=== PATIENT | male | born 1960 | race African-American/Black ===

== ENCOUNTER 2016-11-14 00:40 | Inpatient (IN) | payer SELFPAY ==
[2016-11-14] VITALS (15 sets, daily range): BP systolic 109–153; BP diastolic 75–112
[~2016-11-14] VITALS: Ht 168.9 cm; Wt 104.4 kg
[2016-11-14 01:39] LABS: BASO # 0.1 x10^3/uL (0.0-0.2); BASO % 1 % (0-3); EOS % 1 % (0-3); HEMATOCRIT 49.2 % (39.0-53.0); HEMOGLOBIN 16.3 g/dL (13.0-17.5); LYMPH # 3.6 x10^3/uL (1.0-4.8); LYMPH % 35 % (24-48); MEAN CORPUSCULAR HEMOGLOBIN 31 pg (25-35); MEAN CORPUSCULAR HGB CONC 33 g/dL (31-37); MEAN CORPUSCULAR VOLUME 93 fL (79-100); MONO % 7 % (0-9); NEUT % 57 % (31-73); PLATELET COUNT 253 x10^3/uL (140-400); RED BLOOD COUNT 5.27 x10^6/uL (4.30-5.70); WHITE BLOOD COUNT 10.2 x10^3/uL (4.0-11.0)
[2016-11-14 02:01] LABS: CALCIUM 8.8 mg/dL (8.5-10.1); CREATININE 1.3 mg/dL (0.7-1.3); GFR 56.9; POTASSIUM 4.2 mmol/L (3.5-5.1)
[2016-11-14 02:09] LABS: ALBUMIN 3.1 g/dL (3.4-5.0); ALBUMIN/GLOBULIN RATIO 0.7 (1.0-1.7); TOTAL BILIRUBIN 0.7 mg/dL (0.2-1.0); TOTAL PROTEIN 7.3 g/dL (6.4-8.2)
--- NOTE | 2016-11-14 02:36 | PHYS DOC ---
Past Medical History Past Medical History: Diabetes-Type II Past Surgical History: Other Additional Past Surgical Histo: toe Alcohol Use: Rarely Drug Use: None Adult General Chief Complaint Chief Complaint: CHEST PAIN HPI HPI Patient is a 56 year old gentleman who presents here today complaining of chest pain. Patient has midsternal chest pressure while he is resting. Patient denies any shortness of breath nausea vomiting radiating pain. Patient reports he was diaphoretic. Patient reports she took one sublingual nitroglycerin Rocephin is currently pain-free. Patient reports he works out every day. Patient reports he does approximately 150 crunches per day. Patient has no history of hypertension liver longer kidney problems. Patient does have a history of diabetes. Patient reports he had a history of a coronary stent in the past. Patient does not smoke drink or do any drugs. Patient reports she is allergic to insulin. Patient's EKG was consistent with normal sinus rhythm without ectopy 110. Patient has nonspecific ST-T wave abnormalities without any evidence of STEMI. Chest x-ray revealed no acute disease. Normal heart no infiltrates or effusions. Interpreted by Dr. Morfin. Patient's troponin level was 1.707. Constitutional: Denies fever or chills [] Eyes: Denies change in visual acuity, redness, or eye pain [] HENT: Denies nasal congestion or sore throat [] All other review systems are negative except as documented in the history of present illness portion. Constitutional: Well developed, well nourished, no acute distress, non-toxic appearance. [] HENT: Normocephalic, atraumatic, bilateral external ears normal, oropharynx moist, no oral exudates, nose normal. [] Eyes: no discharge. [] Neck: Normal range of motion, no tenderness, supple, no stridor. [] Cardiovascular:Heart rate regular rhythm, Lungs & Thorax: Bilateral breath sounds clear to auscultation [] Abdomen: Bowel sounds normal, soft, no tenderness, no masses, no pulsatile masses. [] Skin: Warm, dry, no erythema, no rash. [] Back: No tenderness, no CVA tenderness. [] Extremities: No tenderness, no cyanosis, no clubbing, ROM intact, no edema. [] Neurologic: Alert and oriented X 3, normal motor function, normal sensory function, no focal deficits noted. [] Psychologic: Affect normal, judgement normal, mood normal. [] Assessment and plan This is a 56-year-old gentleman who presents here today with chest pain was found to have an elevated troponin of 1.707. CO2 for further evaluation of his elevated troponin. Patient was started on heparin drip. Patient's currently pain -free. Patient's repeat EKG did not reveal any change in his nonspecific ST-T waves Remainder the patient's labs were within normal limits. Patient be admitted for cardiology evaluation. Patient is clinically and hemodynamically stable. Critical care time was 35 minutes exclusive of procedures. Laboratory Tests Test 11/14/16 00:53 11/14/16 02:00 White Blood Count 10.2 x10^3/uL Red Blood Count 5.27 x10^6/uL Hemoglobin 16.3 g/dL Hematocrit 49.2 % Mean Corpuscular Volume 93 fL Mean Corpuscular Hemoglobin 31 pg Mean Corpuscular Hemoglobin Concent 33 g/dL Red Cell Distribution Width 14.0 % Platelet Count 253 x10^3/uL Neutrophils (%) (Auto) 57 % Lymphocytes (%) (Auto) 35 % Monocytes (%) (Auto) 7 % Eosinophils (%) (Auto) 1 % Basophils (%) (Auto) 1 % Neutrophils # (Auto) 5.8 x10^3uL Lymphocytes # (Auto) 3.6 x10^3/uL Monocytes # (Auto) 0.7 x10^3/uL Eosinophils # (Auto) 0.1 x10^3/uL Basophils # (Auto) 0.1 x10^3/uL Sodium Level 138 mmol/L Potassium Level 4.2 mmol/L Chloride Level 101 mmol/L Carbon Dioxide Level 26 mmol/L Anion Gap 11 Blood Urea Nitrogen 18 mg/dL Creatinine 1.3 mg/dL Estimated GFR (Cockcroft-Gault) 56.9 BUN/Creatinine Ratio 14 Glucose Level 401 mg/dL Calcium Level 8.8 mg/dL Total Bilirubin 0.7 mg/dL Aspartate Amino Transf (AST/SGOT) 44 U/L Alanine Aminotransferase (ALT/SGPT) 47 U/L Alkaline Phosphatase 78 U/L Troponin I Quantitative 1.707 ng/mL ZT-[id number]-[id number]-Type Natriuretic Peptide 2969 pg/mL Total Protein 7.3 g/dL Albumin 3.1 g/dL Albumin/Globulin Ratio 0.7 Prothrombin Time 13.3 SEC Prothromb Time International Ratio 1.1 Activated Partial Thromboplast Time 32 SEC Magnesium Level 1.6 mg/dL Triglycerides Level 119 mg/dL Cholesterol Level 206 mg/dL LDL Cholesterol, Calculated 139 mg/dL VLDL Cholesterol, Calculated 24 mg/dL Non-HDL Cholesterol Calculated 163 mg/dL HDL Cholesterol 43 mg/dL Cholesterol/HDL Ratio 4.8 Thyroid Stimulating Hormone (TSH) 3.738 uIU/mL Allergies Allergies Allergies Coded Allergies Type Severity Reaction Last Updated Verified Insulins Allergy Intermediate 11/14/16 Yes glimepiride Allergy Intermediate 11/14/16 Yes metformin Allergy Intermediate 11/14/16 Yes Current Patient Data Vital Signs Vital Signs Date Time Temp Pulse Resp B/P (MAP) Pulse Ox O2 Delivery O2 Flow Rate FiO2 11/14/16 00:46 97.6 53 16 156/91 (112) 97 Room Air 97.6 Lab Values Laboratory Tests Test 11/14/16 00:53 11/14/16 02:00 White Blood Count 10.2 x10^3/uL (4.0-11.0) Red Blood Count 5.27 x10^6/uL (4.30-5.70) Hemoglobin 16.3 g/dL (13.0-17.5) Hematocrit 49.2 % (39.0-53.0) Mean Corpuscular Volume 93 fL (79-100) Mean Corpuscular Hemoglobin 31 pg (25-35) Mean Corpuscular Hemoglobin Concent 33 g/dL (31-37) Red Cell Distribution Width 14.0 % (11.5-14.5) Platelet Count 253 x10^3/uL (140-400) Neutrophils (%) (Auto) 57 % (31-73) Lymphocytes (%) (Auto) 35 % (24-48) Monocytes (%) (Auto) 7 % (0-9) Eosinophils (%) (Auto) 1 % (0-3) Basophils (%) (Auto) 1 % (0-3) Neutrophils # (Auto) 5.8 x10^3uL (1.8-7.7) Lymphocytes # (Auto) 3.6 x10^3/uL (1.0-4.8) Monocytes # (Auto) 0.7 x10^3/uL (0.0-1.1) Eosinophils # (Auto) 0.1 x10^3/uL (0.0-0.7) Basophils # (Auto) 0.1 x10^3/uL (0.0-0.2) Sodium Level 138 mmol/L (136-145) Potassium Level 4.2 mmol/L (3.5-5.1) Chloride Level 101 mmol/L (98-107) Carbon Dioxide Level 26 mmol/L (21-32) Anion Gap 11 (6-14) Blood Urea Nitrogen 18 mg/dL (8-26) Creatinine 1.3 mg/dL (0.7-1.3) Estimated GFR (Cockcroft-Gault) 56.9 BUN/Creatinine Ratio 14 (6-20) Glucose Level 401 mg/dL (70-99) H Calcium Level 8.8 mg/dL (8.5-10.1) Total Bilirubin 0.7 mg/dL (0.2-1.0) Aspartate Amino Transferase (AST) 44 U/L (15-37) H Alanine Aminotransferase (ALT) 47 U/L (16-63) Alkaline Phosphatase 78 U/L (46-116) Troponin I Quantitative 1.707 ng/mL (0.000-0.055) PH-Kub-X-Type Natriuretic Peptide 2969 pg/mL (0-124) H Total Protein 7.3 g/dL (6.4-8.2) Albumin 3.1 g/dL (3.4-5.0) L Albumin/Globulin Ratio 0.7 (1.0-1.7) L Prothrombin Time 13.3 SEC (11.7-14.0) Prothrombin Time INR 1.1 (0.8-1.1) PTT 32 SEC (24-38) Magnesium Level 1.6 mg/dL (1.8-2.4) L Triglycerides Level 119 mg/dL (0-150) Cholesterol Level 206 mg/dL (0-200) H LDL Cholesterol, Calculated 139 mg/dL (0-100) H VLDL Cholesterol, Calculated 24 mg/dL (0-40) Non-HDL Cholesterol Calculated 163 mg/dL (0-129) H HDL Cholesterol 43 mg/dL (40-60) Cholesterol/HDL Ratio 4.8 Thyroid Stimulating Hormone (TSH) 3.738 uIU/mL (0.358-3.74) Laboratory Tests 11/14/16 00:53 Laboratory Tests 11/14/16 00:53 EKG EKG [] Radiology/Procedures Radiology/Procedures [] Course & Med Decision Making Course & Med Decision Making Pertinent Labs and Imaging studies reviewed. (See chart for details) [] Dragon Disclaimer Dragon Disclaimer This electronic medical record was generated, in whole or in part, using a voice recognition dictation system. Departure Departure Impression: Primary Impression: Unstable angina Additional Impressions: Non-STEMI (non-ST elevated myocardial infarction) Elevated troponin Disposition: ADMITTED INPATIENT Admitting Physician: Other Condition: GUARDED (reusch) Referrals: NO PCP (PCP) Scripts Metoprolol Tartrate (METOPROLOL TARTRATE) 25 Mg Tablet 12.5 MG PO BID for 30 Days, #30 TAB Prov: PRETTY WALLER MD 11/16/16 Metformin Hcl (GLUCOPHAGE) 1,000 Mg Tablet 1000 MG PO BIDWMEALS for 30 Days, #6 TAB Prov: PRETTY WALLER MD 11/16/16 Clopidogrel Bisulfate (CLOPIDOGREL) 75 Mg Tablet 75 MG PO DAILYWBKFT for 30 Days, #30 TAB Prov: PRETTY WALLER MD 11/16/16 Aspirin (ASPIRIN EC) 81 Mg Tablet.dr 81 MG PO DAILYWBKFT for 30 Days, #30 TAB.SR Prov: PRETTY WALLER MD 11/16/16 Problem Qualifiers ANUM DORAN MD Nov 14, 2016 02:36
[2016-11-14] MEDS ORDERED: NITROGLYCERIN SUBLINGUAL 0.4 MG BOTTLE OF 25. SL PRN (02:45)
[2016-11-14] MEDS ORDERED: MORPHINE SULFATE 2 MG/ML DISP.SYRIN. IV PRN (02:45)
[2016-11-14] MEDS ORDERED: ACETAMINOPHEN 325 MG TABLET. PO PRN (02:45)
[2016-11-14] MEDS ORDERED: ONDANSETRON PF 4 MG/2 ML VIAL. IV PRN (02:45)
[2016-11-14] MEDS ORDERED: ASPIRIN CHEWABLE 81 MG TABLET. PO ONE (03:00)
[2016-11-14] MEDS ORDERED: NITROGLYCERIN OINT 1 GM PACKET. TP ONE (03:00)
[2016-11-14] MEDS: HEPARIN for IV BOLUS 10,000 UNIT/10 ML VIAL. IV PRN (03:50)
[2016-11-14] MEDS: HEPARIN 25,000UTS/500ML PREMIX 500 ML IV PRN (03:51)
[2016-11-14 04:13] LABS: INR 1.1 (0.8-1.1); PROTHROMBIN TIME PATIENT 13.3 SEC (11.7-14.0)
[2016-11-14] MEDS: ANTI-COAG MONITOR BY PHARMACY. MC PRN ×2 (04:37→09:48)
--- NOTE | 2016-11-14 07:19 | PDOC2 ---
ABEL RIDLEY IC [employer] 11/14/16 0719: CARDIAC CONSULT DATE OF CONSULT Date of Consult DATE: 11/14/16 TIME: 07:15 REASON FOR CONSULT Reason for Consult: NSTEMI REFERRING PHYSICIAN Referring Physician: Brock SOURCE Source: Chart review, Patient HISTORY OF PRESENT ILLNESS HISTORY OF PRESENT ILLNESS This is a pleasant 56 yo male admitted for complains of midsternal fullness. Reports that last night after eating he started having fullness "gas like feeling" like indigestion. There was no chest pain, nausea, palpitations, dizziness, or diaphoresis. His activity is minimal but he has been having episode where he has to stop during conversation to catch his breath. Reports that he had PCI/stent at [facility] 2014. He is rather a poor historian and is not compliant with his medications. He takes daily ASA otherwise no other routine prescription medications. PAST MEDICAL HISTORY Cardiovascular: CAD, HTN, Hyperlipidemia ENT: Other (periodontal disease) Endocrine: Diabetes (2) PAST SURGICAL HISTORY Past Surgical History: Other (PCI/stent 2014) FAMILY HISTORY Family History: Coronary Artery Disease (mother) SOCIAL HISTORY Smoke: No (quit remotely 3 pk yr) ALCOHOL: occassional Drugs: None Lives: with Family CURRENT MEDICATIONS CURRENT MEDICATIONS Current Medications Medications (Trade) Dose Ordered Sig/Jewell Route PRN Reason Start Time Stop Time Status Last Admin Dose Admin Aspirin (Children'S Aspirin) 324 mg 1X ONCE PO 11/14/16 03:00 11/14/16 03:01 DC 11/14/16 02:46 Nitroglycerin (Nitro-Bid Oint) 1 inch 1X ONCE TP 11/14/16 03:00 11/14/16 03:01 DC 11/14/16 02:49 Heparin Sodium/ Dextrose 500 ml @ 0 mls/hr CONT PRN IV SEE I/O RECORD 11/14/16 03:15 11/14/16 03:51 Heparin Sodium (Porcine) (Heparin Sodium) 2,600 unit PRN Q6HRS PRN IV FOR UFH LEVEL LESS THAN 0.2 11/14/16 03:15 11/14/16 03:50 Info (Anti-Coagulation Monitoring By Pharmacy) 1 each PRN DAILY PRN MC SEE COMMENTS 11/14/16 03:30 11/14/16 04:37 ALLERGIES ALLERGIES: Coded Allergies: Insulins (Verified Allergy, Intermediate, 11/14/16) blurry vision glimepiride (Verified Allergy, Intermediate, 11/14/16) shortness of breath metformin (Verified Allergy, Intermediate, 11/14/16) blurry vision ROS Review of System limited, poor historian PHYSICAL EXAM General: Alert, Oriented X3, Cooperative, No acute distress HEENT: Atraumatic, Mucous membr. moist/pink Lungs: Other (basilra crackles) Heart: Regular rate (SR), Normal S1, Normal S2, Other (S4; 3/6 systolic murmur to LLS border) Abdomen: Soft, No tenderness Extremities: No cyanosis, Other (2+ bilateral LE pitting edema) Skin: No breakdown, No significant lesion Neuro: Normal speech, Sensation intact Psych/Mental Status: Mental status NL, Mood NL MUSCULOSKELETAL: Osteoarthritic changes both hands VITALS VITALS Vital Signs Date Time Temp Pulse Resp B/P (MAP) Pulse Ox O2 Delivery O2 Flow Rate FiO2 11/14/16 05:32 Room Air 11/14/16 03:45 97.5 105 20 149/112 (124) 96 97.5 LABS Lab: Laboratory Tests Test 11/14/16 00:53 11/14/16 02:00 White Blood Count 10.2 x10^3/uL (4.0-11.0) Red Blood Count 5.27 x10^6/uL (4.30-5.70) Hemoglobin 16.3 g/dL (13.0-17.5) Hematocrit 49.2 % (39.0-53.0) Mean Corpuscular Volume 93 fL (79-100) Mean Corpuscular Hemoglobin 31 pg (25-35) Mean Corpuscular Hemoglobin Concent 33 g/dL (31-37) Red Cell Distribution Width 14.0 % (11.5-14.5) Platelet Count 253 x10^3/uL (140-400) Neutrophils (%) (Auto) 57 % (31-73) Lymphocytes (%) (Auto) 35 % (24-48) Monocytes (%) (Auto) 7 % (0-9) Eosinophils (%) (Auto) 1 % (0-3) Basophils (%) (Auto) 1 % (0-3) Neutrophils # (Auto) 5.8 x10^3uL (1.8-7.7) Lymphocytes # (Auto) 3.6 x10^3/uL (1.0-4.8) Monocytes # (Auto) 0.7 x10^3/uL (0.0-1.1) Eosinophils # (Auto) 0.1 x10^3/uL (0.0-0.7) Basophils # (Auto) 0.1 x10^3/uL (0.0-0.2) Sodium Level 138 mmol/L (136-145) Potassium Level 4.2 mmol/L (3.5-5.1) Chloride Level 101 mmol/L (98-107) Carbon Dioxide Level 26 mmol/L (21-32) Anion Gap 11 (6-14) Blood Urea Nitrogen 18 mg/dL (8-26) Creatinine 1.3 mg/dL (0.7-1.3) Estimated GFR (Cockcroft-Gault) 56.9 BUN/Creatinine Ratio 14 (6-20) Glucose Level 401 mg/dL (70-99) Calcium Level 8.8 mg/dL (8.5-10.1) Total Bilirubin 0.7 mg/dL (0.2-1.0) Aspartate Amino Transf (AST/SGOT) 44 U/L (15-37) Alanine Aminotransferase (ALT/SGPT) 47 U/L (16-63) Alkaline Phosphatase 78 U/L (46-116) Troponin I Quantitative 1.707 ng/mL (0.000-0.055) PU-Plt-Q-Type Natriuretic Peptide 2969 pg/mL (0-124) Total Protein 7.3 g/dL (6.4-8.2) Albumin 3.1 g/dL (3.4-5.0) Albumin/Globulin Ratio 0.7 (1.0-1.7) Prothrombin Time 13.3 SEC (11.7-14.0) Prothromb Time International Ratio 1.1 (0.8-1.1) Activated Partial Thromboplast Time 32 SEC (24-38) ASSESSMENT/PLAN ASSESSMENT/PLAN 1. NSTEMI 2. Acute CHF with possible combined diastolic/systolic dysfunction 3. DM2/HLP/HTN 4. CAD: PCI/stent 2014 5. Noncompliance Recommendations 1. TTE, EKG. Will need LHC 2. Continue heparin drip. ASA 3. Lasix IV x1. Labetolol IV PRN. Start on losartan. 4. TSH, BMP, Mg, lipid panel. Problems: RADHA MAYFIELD MD 11/14/16 1244: CARDIAC CONSULT ALLERGIES ALLERGIES: Coded Allergies: Insulins (Verified Allergy, Intermediate, 11/14/16) blurry vision glimepiride (Verified Allergy, Intermediate, 11/14/16) shortness of breath metformin (Verified Allergy, Intermediate, 11/14/16) blurry vision ASSESSMENT/PLAN ASSESSMENT/PLAN Pt. seen and examined. Agree with above EMS HELICOPTER PILOT note. 56 y.o critically ill male presenting for chest pain. NSTEMI with trop of 71 in the setting of prior LAD stent. Taken to lab animal technologist. Found to have two vessel CAD. Moderate Poor prognosis. Underwent angioplasty of the RCA. No stent placed due to small size of vessels. Problems: ABEL RIDLEY APRN Nov 14, 2016 07:19 RADHA MAYFIELD MD Nov 14, 2016 12:44
[2016-11-14] MEDS ORDERED: LABETALOL 20 MG/4 ML DISP.SYRIN. IVP PRN (07:30)
--- NOTE | 2016-11-14 07:36 | EKG ---
[facility] [address] [place] [address] Test Date: 2016-11-13 Test Time: 21:02:22 Pat Name: KEATON ALANIZ Department: Room: 202 1 Gender: M Recruiter: : 1960 Requested By: ANUM DORAN Order Number: [id number] Reading MD: Elliott Hylton Measurements Intervals [place] Rate: 94 P: 2 TX: 138 QRS: 77 QRSD: 88 T: -14 QT: 350 QTc: 438 Interpretive Statements SINUS RHYTHM QRS(T) CONTOUR ABNORMALITY CANNOT RULE OUT ANTEROSEPTAL MYOCARDIAL DAMAGE T ABNORMALITY IN INFEROLATERAL LEADS Electronically Signed On 11-22-2016 14:54:27 CDT by Elliott Hylton
--- NOTE | 2016-11-14 07:38 | EKG ---
[facility] [address] [place] [address] Test Date: 2016-11-14 Test Time: 00:47:18 Pat Name: KEATON ALANIZ Department: Room: 202 1 Gender: M Sausage Tier: : 1960 Requested By: ABEL RIDLEY Order Number: [id number] Reading MD: Ignacio To Measurements Intervals [place] Rate: 102 P: [place]: QRS: 14 QRSD: 96 T: 93 QT: 320 QTc: 421 Interpretive Statements SR PVC PRIOR ANTEROLATERAL INFARCT Electronically Signed On 11-19-2016 14:35:26 CDT by Ignacio To
[2016-11-14] MEDS ORDERED: FUROSEMIDE 40 MG/4 ML VIAL. IVP ONE (07:45)
[2016-11-14 07:56] LABS: MAGNESIUM 1.6 mg/dL (1.8-2.4)
[2016-11-14 07:58] LABS: CHOLESTEROL/HDL RATIO 4.8
[2016-11-14] MEDS: LOSARTAN POTASSIUM 50 MG TABLET. PO SCH (08:04)
[2016-11-14] MEDS: ASPIRIN ENTERIC COATED 81 MG TABLET.DR. PO SCH (08:04)
--- NOTE | 2016-11-14 08:13 | RAD ---
Indication chest pain. A single view chest was obtained. No prior imaging is available. Heart size and pulmonary vessels are within normal limits. There is a suspect small right pleural effusion. A consolidated pneumonia is not seen. IMPRESSION: Suspect small right pleural effusion. No consolidated pneumonia or additional finding seen
--- NOTE | 2016-11-14 09:50 | PDOC1 ---
History and Physical Date of Admission Date of Admission Date of exam 11/14/2016 Chief complaint: Chest pressure History of Present Illness History of Present Illness A 56-year-old male patient with history of coronary artery disease and coronary stents placed in 2014 at [facility], with component of noncompliance presented to the ER with complaints of chest pressure/ indigestion. Patient noted symptoms as today evening as indigestion, with some sweating, denies any nausea or vomiting or chest pain or syncope. As patient was working out he noticed more more indigestion-like symptoms. He is noncompliant with his medications due to unknown reasons also patient is diabetic. Patient had a elevation of troponins with EKG changes. His symptoms resolved at the time of my examination this morning, he received aspirin in the ER. Past Medical History Cardiovascular: CAD, HTN, Hyperlipidemia ENT: Other (periodontal disease) Endocrine: Diabetes (2) Past Surgical History Past Surgical History: Other (PCI/stent 2014) Family History Family History: Coronary Artery Disease (mother) Social History Smoke: No (quit remotely 3 pk yr) ALCOHOL: occassional Drugs: None Current Problem List Problem List Problems Medical Problems: (1) Elevated troponin Status: Acute (2) Non-STEMI (non-ST elevated myocardial infarction) Status: Acute (3) Unstable angina Status: Acute Current Medications Current Medications Current Medications Medications (Trade) Dose Ordered Sig/Jewell Start Time Stop Time Status Last Admin Dose Admin Acetaminophen (Tylenol) 650 mg PRN Q4HRS PRN 11/14/16 02:45 11/15/16 02:44 Aspirin (Children'S Aspirin) 324 mg 1X ONCE 11/14/16 03:00 11/14/16 03:01 DC 11/14/16 02:46 243 MG Aspirin (Ecotrin) 81 mg [id number] 11/14/16 08:00 11/14/16 08:04 81 MG Furosemide (Lasix) 40 mg 1X ONCE 11/14/16 07:45 11/14/16 07:46 DC 11/14/16 08:04 40 MG Heparin Sodium (Porcine) (Heparin Sodium) 2,600 unit PRN Q6HRS PRN 11/14/16 03:15 11/14/16 03:50 2,600 UNIT Heparin Sodium/ Dextrose 500 ml @ 0 mls/hr CONT PRN 11/14/16 03:15 11/14/16 03:51 20 MLS/HR Info (Anti-Coagulation Monitoring By Pharmacy) 1 each PRN DAILY PRN 11/14/16 03:30 11/14/16 04:37 1 EACH Labetalol HCl (Normodyne) 20 mg PRN Q2HR PRN 11/14/16 07:30 Losartan Potassium (Cozaar) 50 mg DAILY 11/14/16 09:00 Morphine Sulfate 2 mg PRN Q2HR PRN 11/14/16 02:45 11/15/16 02:44 Nitroglycerin (Nitro-Bid Oint) 1 inch 1X ONCE 11/14/16 03:00 11/14/16 03:01 DC 11/14/16 02:49 1 INCH Nitroglycerin (Nitrostat) 0.4 mg PRN Q5MIN PRN 11/14/16 02:45 11/15/16 02:44 Ondansetron HCl (Zofran) 4 mg PRN Q8HRS PRN 11/14/16 02:45 11/15/16 02:44 Allergies Allergies Allergies Coded Allergies Type Severity Reaction Last Updated Verified Insulins Allergy Intermediate 11/14/16 Yes glimepiride Allergy Intermediate 11/14/16 Yes metformin Allergy Intermediate 11/14/16 Yes ROS Review of System CONSTITUTIONAL: No fever or chills EYES: No recent changes SKIN: No rash or itching CARDIOVASCULAR: No chest pain, syncope, palpitations, or edema RESPIRATORY: No SOB or cough GASTROINTESTINAL: No nausea, vomiting or abdominal pain NEUROLOGICAL: No headaches or weakness ENDOCRINE: No cold or heat intolerance GENITOURINARY: No urgency or frequency of urination MUSCULOSKELETAL: No back pain or joint pain LYMPHATICS: No enlarged lymph nodes PSYCHIATRIC: No anxiety or depression Physical Exam Physical Exam GEN.: No apparent distress. Alert and oriented. Examined after angiogram, alert oriented 3 no distress HEENT: Head is normocephalic, atraumatic NECK: Supple. No JVD LUNGS: Clear to auscultation. Normal air flow HEART: RRR, S1, S2 present. Peripheral pulses intact ABDOMEN: Soft, nontender. Positive bowel sounds. EXTREMITIES: Without any cyanosis. NEUROLOGIC: Normal speech, normal tone PSYCHIATRIC: Normal affect, normal mood. SKIN: No ulcerations Vitals Vitals Vital Signs Date Time Temp Pulse Resp B/P (MAP) Pulse Ox O2 Delivery O2 Flow Rate FiO2 11/14/16 08:04 90 129/87 11/14/16 07:00 97.6 20 97 Room Air 97.6 Labs Labs Laboratory Tests Test 11/14/16 00:53 11/14/16 02:00 11/14/16 07:15 11/14/16 08:04 White Blood Count 10.2 x10^3/uL (4.0-11.0) Red Blood Count 5.27 x10^6/uL (4.30-5.70) Hemoglobin 16.3 g/dL (13.0-17.5) Hematocrit 49.2 % (39.0-53.0) Mean Corpuscular Volume 93 fL (79-100) Mean Corpuscular Hemoglobin 31 pg (25-35) Mean Corpuscular Hemoglobin Concent 33 g/dL (31-37) Red Cell Distribution Width 14.0 % (11.5-14.5) Platelet Count 253 x10^3/uL (140-400) Neutrophils (%) (Auto) 57 % (31-73) Lymphocytes (%) (Auto) 35 % (24-48) Monocytes (%) (Auto) 7 % (0-9) Eosinophils (%) (Auto) 1 % (0-3) Basophils (%) (Auto) 1 % (0-3) Neutrophils # (Auto) 5.8 x10^3uL (1.8-7.7) Lymphocytes # (Auto) 3.6 x10^3/uL (1.0-4.8) Monocytes # (Auto) 0.7 x10^3/uL (0.0-1.1) Eosinophils # (Auto) 0.1 x10^3/uL (0.0-0.7) Basophils # (Auto) 0.1 x10^3/uL (0.0-0.2) Sodium Level 138 mmol/L (136-145) Potassium Level 4.2 mmol/L (3.5-5.1) Chloride Level 101 mmol/L (98-107) Carbon Dioxide Level 26 mmol/L (21-32) Anion Gap 11 (6-14) Blood Urea Nitrogen 18 mg/dL (8-26) Creatinine 1.3 mg/dL (0.7-1.3) Estimated GFR (Cockcroft-Gault) 56.9 BUN/Creatinine Ratio 14 (6-20) Glucose Level 401 mg/dL (70-99) Calcium Level 8.8 mg/dL (8.5-10.1) Total Bilirubin 0.7 mg/dL (0.2-1.0) Aspartate Amino Transf (AST/SGOT) 44 U/L (15-37) Alanine Aminotransferase (ALT/SGPT) 47 U/L (16-63) Alkaline Phosphatase 78 U/L (46-116) Troponin I Quantitative 1.707 ng/mL (0.000-0.055) 71.849 ng/mL (0.000-0.055) KM-Byx-Y-Type Natriuretic Peptide 2969 pg/mL (0-124) Total Protein 7.3 g/dL (6.4-8.2) Albumin 3.1 g/dL (3.4-5.0) Albumin/Globulin Ratio 0.7 (1.0-1.7) Prothrombin Time 13.3 SEC (11.7-14.0) Prothromb Time International Ratio 1.1 (0.8-1.1) Activated Partial Thromboplast Time 32 SEC (24-38) Magnesium Level 1.6 mg/dL (1.8-2.4) Triglycerides Level 119 mg/dL (0-150) Cholesterol Level 206 mg/dL (0-200) LDL Cholesterol, Calculated 139 mg/dL (0-100) VLDL Cholesterol, Calculated 24 mg/dL (0-40) Non-HDL Cholesterol Calculated 163 mg/dL (0-129) HDL Cholesterol 43 mg/dL (40-60) Cholesterol/HDL Ratio 4.8 Thyroid Stimulating Hormone (TSH) 3.738 uIU/mL (0.358-3.74) Glucose (Fingerstick) 307 mg/dL (70-99) Laboratory Tests Test 11/14/16 00:53 11/14/16 02:00 11/14/16 07:15 11/14/16 08:04 White Blood Count 10.2 x10^3/uL (4.0-11.0) Red Blood Count 5.27 x10^6/uL (4.30-5.70) Hemoglobin 16.3 g/dL (13.0-17.5) Hematocrit 49.2 % (39.0-53.0) Mean Corpuscular Volume 93 fL (79-100) Mean Corpuscular Hemoglobin 31 pg (25-35) Mean Corpuscular Hemoglobin Concent 33 g/dL (31-37) Red Cell Distribution Width 14.0 % (11.5-14.5) Platelet Count 253 x10^3/uL (140-400) Neutrophils (%) (Auto) 57 % (31-73) Lymphocytes (%) (Auto) 35 % (24-48) Monocytes (%) (Auto) 7 % (0-9) Eosinophils (%) (Auto) 1 % (0-3) Basophils (%) (Auto) 1 % (0-3) Neutrophils # (Auto) 5.8 x10^3uL (1.8-7.7) Lymphocytes # (Auto) 3.6 x10^3/uL (1.0-4.8) Monocytes # (Auto) 0.7 x10^3/uL (0.0-1.1) Eosinophils # (Auto) 0.1 x10^3/uL (0.0-0.7) Basophils # (Auto) 0.1 x10^3/uL (0.0-0.2) Sodium Level 138 mmol/L (136-145) Potassium Level 4.2 mmol/L (3.5-5.1) Chloride Level 101 mmol/L (98-107) Carbon Dioxide Level 26 mmol/L (21-32) Anion Gap 11 (6-14) Blood Urea Nitrogen 18 mg/dL (8-26) Creatinine 1.3 mg/dL (0.7-1.3) Estimated GFR (Cockcroft-Gault) 56.9 BUN/Creatinine Ratio 14 (6-20) Glucose Level 401 mg/dL (70-99) Calcium Level 8.8 mg/dL (8.5-10.1) Total Bilirubin 0.7 mg/dL (0.2-1.0) Aspartate Amino Transf (AST/SGOT) 44 U/L (15-37) Alanine Aminotransferase (ALT/SGPT) 47 U/L (16-63) Alkaline Phosphatase 78 U/L (46-116) Troponin I Quantitative 1.707 ng/mL (0.000-0.055) 71.849 ng/mL (0.000-0.055) LJ-Jkb-X-Type Natriuretic Peptide 2969 pg/mL (0-124) Total Protein 7.3 g/dL (6.4-8.2) Albumin 3.1 g/dL (3.4-5.0) Albumin/Globulin Ratio 0.7 (1.0-1.7) Prothrombin Time 13.3 SEC (11.7-14.0) Prothromb Time International Ratio 1.1 (0.8-1.1) Activated Partial Thromboplast Time 32 SEC (24-38) Magnesium Level 1.6 mg/dL (1.8-2.4) Triglycerides Level 119 mg/dL (0-150) Cholesterol Level 206 mg/dL (0-200) LDL Cholesterol, Calculated 139 mg/dL (0-100) VLDL Cholesterol, Calculated 24 mg/dL (0-40) Non-HDL Cholesterol Calculated 163 mg/dL (0-129) HDL Cholesterol 43 mg/dL (40-60) Cholesterol/HDL Ratio 4.8 Thyroid Stimulating Hormone (TSH) 3.738 uIU/mL (0.358-3.74) Glucose (Fingerstick) 307 mg/dL (70-99) VTE Prophylaxis Ordered VTE Prophylaxis Devices: Yes VTE Pharmacological Prophylaxi: Yes Assessment/Plan Assessment/Plan NSTEMI Hyperglycemia Hypertension History of coronary artery disease Hyperlipidemia Plan His labs reviewed, showed elevation of troponins, has been placed on heparin GTT as per ACS protocol. Case discussed with cardiology, they're planning for angiogram today, patient had a history of noncompliance with medications, Order HbA1c Monitor blood sugars closely, try sliding scale insulin with NovoLog Lipitor for hyperlipidemia EKG personally reviewed-showed T-wave inversions in anterior leads. Appreciate cardiology recommendations, prognosis guarded Family members at bedside plan explained to family members agree with current management RAMONA ANTUNEZ MD Nov 14, 2016 09:50
[2016-11-14] MEDS ORDERED: LIDOCAINE 2% 20 ML VIAL. ONE (09:57)
[2016-11-14] MEDS ORDERED: IODIXANOL 320 MG/ML 100 ML VIAL. ONE (09:58)
[2016-11-14] MEDS ORDERED: fentaNYL PF VIAL 250 MCG/5 ML VIAL ONE (10:37)
[2016-11-14] MEDS ORDERED: NITROGLYCERIN 200 MCG/2 ML SYRINGE FOR CATH/VASC LAB. ONE (10:37)
[2016-11-14] MEDS ORDERED: HEPARIN for IV BOLUS 10,000 UNIT/10 ML VIAL. ONE (10:37)
[2016-11-14] MEDS ORDERED: VERAPAMIL 5 MG/2 ML VIAL. ONE (10:37)
[2016-11-14] MEDS ORDERED: MIDAZOLAM HCL/PF 5 MG/5 ML VIAL. ONE (10:38)
[2016-11-14] MEDS ORDERED: NITROGLYCERIN 200 MCG/2 ML SYRINGE FOR CATH/VASC LAB. IART ONE (11:00)
[2016-11-14] MEDS ORDERED: VERAPAMIL 5 MG/2 ML VIAL. IART ONE (11:00)
[2016-11-14] MEDS ORDERED: MIDAZOLAM HCL/PF 5 MG/5 ML VIAL. IV ONE (11:00)
[2016-11-14] MEDS ORDERED: LIDOCAINE 2% 20 ML VIAL. IJ ONE (11:00)
[2016-11-14] MEDS ORDERED: IODIXANOL 320 MG/ML 100 ML VIAL. IART ONE (11:00)
[2016-11-14] MEDS ORDERED: fentaNYL PF VIAL 250 MCG/5 ML VIAL IV ONE (11:00)
[2016-11-14] MEDS ORDERED: CONTRAST GIVEN MC PRN (11:00)
[2016-11-14] MEDS ORDERED: HEPARIN for IV BOLUS 10,000 UNIT/10 ML VIAL. IART ONE (11:00)
[2016-11-14] MEDS ORDERED: TIROFIBAN 12.5MG -0.9% NS 250 ML IV ONE (11:14)
[2016-11-14] MEDS: IV 1/2 NORMAL SALINE 1,000 ML IV SCH (11:26)
[2016-11-14] MEDS ORDERED: TIROFIBAN 12.5MG -0.9% NS 250 ML IV PRN (12:00)
[2016-11-14] MEDS ORDERED: CLOPIDOGREL BISULFATE 75 MG TABLET PO ONE (12:15)
[2016-11-14] MEDS ORDERED: CLOPIDOGREL BISULFATE 75 MG TABLET ONE (12:17)
--- NOTE | 2016-11-14 15:55 | CARD ---
APPROVED REPORT Procedure(s) performed: Left Heart Catheterization PTCA with Balloon Angioplasty 109 minutes of moderate sedation HISTORY The patient is a 56 year-old male with a history of : coronary artery disease, tobacco history() , pr evious PCI (The PCI date was ), hypertension, dyslipidemia. INDICATION The indication(s) include : non-STEMI Trop of 71. CASE TECHNIQUE During this case, Fluoroscopy and Iso-osmolar contrast were used for imaging. PROCEDURE NARRATIVE The patient was brought electively to the cardiac catheterization lab. A timeout was performed confi rming the patient's name, date of , procedure, and site of procedure. All necessary personnel w ere wearing the appropriate protective equipment and radiation monitor devices. After explaining the risks and benefits of the procedure and alternatives, informed consent was obtained. (See nursing no maryanne for medications administered). The right wrist was sterilely prepped and draped in the usual fas hion. The right wrist was infiltrated with 1 mL of 2% lidocaine for subcutaneous anesthesia. A 6 Fr ench Terumo glide sheath was inserted into the right radial artery without difficulty. Right and lef t coronary angiography was performed using a 6Fr TIG 4.0 catheter. HEMODYNAMICS: LVEDP 22 mm Hg No gradient on LV to aortic pullback. LEFT VENTRICULOGRAM: Severe global hypokinesis with akinesis of the anterior wall. CORONARY ANGIOGRAPHY: LM is a large caliber vessel with mild luminal irregularities of up to 20%. LAD is a large caliber vessel with a proximal 100% occlusion at the site of previously placed stents. Collaterals to the apical LAD were not well visualized, likely due to PDA occlusion, which presumabl y was providing collaterals to the apex. LCx is a moderate caliber non-dominant vessel with normal angiographic appearance. OM1 is a moderate caliber vessel with normal angiographic appearance. RCA is a large caliber dominant vessel with mild diffuse irregularities of up to 30%. RPDA is a dual system. The distal limb is ostially occluded at the origin of the RPL. The proximal br anch is patent without significant disease. RPL is ostially occluded. INTERVENTIONAL TECHNIQUE: Initial attempts to pass a pigtail catheter in the LV were unsucessful via the radial approach despit e the use of an AL1 catheter and straight wire. Therefore, right groin access was obtained and a 6Fr sheath was placed in the RCFA. Next, repeat attempts were made to cross the aortic valve and prior to which a limited echo was suggestive of at least moderate aortic stenosis. A pigtail catheter was ton rikki and noted to have a 25mm gradient (likely underestimated due to low EF). Heparin and tirofiban were used for anticoagulation. Due to staining in ostial rpl/pda system, this w as felt to be the culprit lesion. Through a 6Fr JR4 guide catheter, a 0.014' Prowater wire was placed in the distal RPL. PTCA was performed with a 2.0/12 balloon at 10 hamzah. Post-angioplasty it was noted the second (distal) limb of the PDA was ostially occluded. A second (Terumo runthrough) wire was use d to cross the proximal aspect of the lesion. Repeat PTCA was performed but due to small vessel natur e, acute angles and or thrombus burden, significant improvement of flow to the RPDA was not obtained. The RPL was well perfused. Attention was then turned to the LAD stenosis. Through an EBU 3.75 guide catheter, a 0.014'' Prowater wire as used to probe the proximal stent occlusion but this was felt to be chronic and therefore, fu rther attempts were discontinued and the patient was treated with medical therapy. Given 600mg of ton vix and heparin/tirofiban gtts continued. The right groin sheath was noted to be in the ostial SFA an d therefore, this was closed with a Mynx marleni product and the right radial sheath was removed with a T erumo radial band. Conclusion 1. Severe LV dysfunction with suspicion for moderate . 2. Two vessel CAD. 3. Unsuccessful recanalization of the RPDA 4. Successful recanalization of the RPL. Recommendations ASA 81mg daily Plavix 75mg daily I had a long discussion with the patient and his regarding the gravity of his diagnosis/findings . They have poor insight into the matter at this time but will reiterate need for close medical mgmt and follow up. Needs social work consult for insurance.
[2016-11-15] MEDS: HEPARIN for IV BOLUS 10,000 UNIT/10 ML VIAL. IV PRN ×2 (02:23→17:27)
--- NOTE | 2016-11-15 03:10 | ACF ---
Admission Forms Criteria MYOCARDIAL INFARCTION Clinical Indications for Admission to Inpatient Care (Place 'X' for any and all applicable criteria): Admission is indicated for 1 or more of the following (1)(2)(3)(4): [ X]I. Acute MS [ ]II. Contraindications and/or Inappropriate clinical situations for Observational Care in patients with Myocardial Infarction, when ANY ONE of the following is required: [ ]a) Patient with High risk of cardiac embolism (e.g, patients with previous cardiac embolism, LVEF < 40%, age >75 and patients with prosthetic valve) 18 [ ]b) Patient with Moderate risk including DM patient, CAD and patient aged 65-75 18 [ ]c) Patient with any change in cardiac biomarker especially troponin should be managed as high risk in an inpatient setting 19 [ ]d) Physician judgement irrespective of ECG and other diagnostic findings 20 [ ]III.General contraindications and/or Inappropriate clinical situations for Observational Care in patients with Myocardial Infarction, when ANY ONE of the following is required: [ ]a) Prediction of prolongation of LOS based on ANY ONE of the following may be considered as a contraindication for observational care 2, 3, 4, 5, 6, 7, 8, 9, 10, 11 [ ]i) Age > 65 yrs. [ ]ii) Patient arriving by ambulance [ ]iii) Patient with high acuity [ ]iv) Patient requiring vital sign monitoring [ ]v) Patient on IV medication [ ]b) Systolic blood pressures greater than or equal to 180mmHg 3,12 [ ]c) Patient with altered mental status including delirium and other alteration of consciousness, (3) [ ]d) Patient whose discharge disposition will be to a [facility] home or rehabilitation home should not be managed in Emergency Department Observation Unit. CMS rule requires 3 days hospital stay before such placement. 3,13 [ ]e) Patient with failure to thrive due to broad array of etiologies 3 ,16,17 [ ]f) Inability to ambulate 3,14 Extended stay beyond goal length of stay may be needed for (1)(18)(20)(24)(25): [ ]a) Hemodynamic instability, persisting symptoms after intensive medical management, or recurring severe, prolonged symptoms [ ]b) Intravascular procedural complications such as acute vessel closure, stent thrombosis, stent malposition, or vessel dissection (26)(27)(28) [ ]c) Extravascular procedural complications such as retroperitoneal hematoma , pericardial effusion, or cardiac tamponade [ ]d) Entry site complications causing bleeding, hematoma or distal ischemia and requiring ongoing monitoring, surgical repair or surgical thrombectomy. Dangerous arrhythmia [ ]e) Complicated percutaneous coronary intervention (e.g., unsuccessful percutaneous coronary intervention or percutaneous coronary intervention of non- [place] vessel) [ ]f) Urgent or emergent surgery for complications of MS (e.g., ventricular rupture, valvular insufficiency) [ ]g) Surgical revascularization via coronary artery bypass graft [ ]h) Heart failure (e.g., pulmonary edema) [ ]i) Unstable pulmonary comorbidities, including COPD or pneumonia (31) [ ]j) Acute renal failure The original [employer] content created by [employer] has been revised. The portions of the content which have been revised are identified through the use of italic text or in bold, and [employer] has neither reviewed nor approved the modified material. All other unmodified content is copyright [facility] [employer] Please see references footnoted in the original [facility] [employer] edition 2016 Admission Criteria Met?: Yes ELANA HARKINS Nov 15, 2016 03:10
[2016-11-15 03:50] VITALS: BP 111/78
[2016-11-15] MEDS: HEPARIN 25,000UTS/500ML PREMIX 500 ML IV PRN ×2 (06:01→20:57)
[2016-11-15 07:40] VITALS: BP 116/85
[2016-11-15] MEDS: IV 1/2 NORMAL SALINE 1,000 ML IV SCH (07:45)
[2016-11-15] MEDS: LOSARTAN POTASSIUM 50 MG TABLET. PO SCH (08:38)
[2016-11-15] MEDS: ASPIRIN ENTERIC COATED 81 MG TABLET.DR. PO SCH (08:38)
[2016-11-15] MEDS: CLOPIDOGREL BISULFATE 75 MG TABLET PO SCH (08:38)
[2016-11-15 09:25] LABS: HEMOGLOBIN 15.1 g/dL (13.0-17.5); RED BLOOD COUNT 4.87 x10^6/uL (4.30-5.70); RED CELL DISTRIBUTION WIDTH 13.8 % (11.5-14.5)
--- NOTE | 2016-11-15 10:25 | PDOC ---
Provider Note Provider Note No acute events overnight. Denies chest pain. VSS exam unchanged. R groin stable. Meds - heparin, asa, plavix. Trop pending, peaked so far at 90. Plan -Continue present meds. -add HF regimen tomorrow to include b-yarely. Continue losartan. -Supportive care. -Poor insight still. Repeatedly explained issues including CAD, HF, and probable moderate aortic stenosis to patient and . Will continue to educate. RADHA MAYFIELD MD Nov 15, 2016 10:25
[2016-11-15 11:00] VITALS: BP 125/89
--- NOTE | 2016-11-15 12:47 | PDOC ---
PROGRESS NOTES Chief Complaint Chief Complaint Chief complaint chest pain Assessment and plan 1. Severe LV dysfunction with suspicion for moderate . 2. Two vessel CAD. 3. Unsuccessful recanalization of the RPDA 4. Successful recanalization of the RPL. 5. Diabetes mellitus uncontrolled Plan Case discussed with cardiology, patient prognosis is guarded. 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 Continue aspirin, losartan, Plavix at this time. Patient would like to have a $4 list medications at the time of discharge History of Present Illness History of Present Illness Sitting in chair, no fever no chills no chest pains Vitals Vitals Vital Signs Date Time Temp Pulse Resp B/P (MAP) Pulse Ox O2 Delivery O2 Flow Rate FiO2 11/15/16 11:00 97.9 74 24 125/89 (101) 100 Room Air 97.9 11/15/16 08:00 2.0 Physical Exam General: Alert, Oriented X3, Cooperative, No acute distress Heart: Regular rate (SR), Normal S1, Normal S2, Other (S4; 3/6 systolic murmur to LLS border) Lungs: Clear Abdomen: Soft, No tenderness Extremities: No cyanosis, Other (2+ bilateral LE pitting edema) Skin: No breakdown, No significant lesion Labs LABS Laboratory Tests Test 11/14/16 14:40 11/15/16 00:30 11/15/16 08:00 Heparin Anti-Xa Act, Unfractionated 0.36 IU/mL (0.30-0.70) 0.11 IU/mL (0.30-0.70) 0.42 IU/mL (0.30-0.70) Troponin I Quantitative 93.655 ng/mL (0.000-0.055) 31.775 ng/mL (0.000-0.055) White Blood Count 9.0 x10^3/uL (4.0-11.0) Red Blood Count 4.87 x10^6/uL (4.30-5.70) Hemoglobin 15.1 g/dL (13.0-17.5) Hematocrit 45.0 % (39.0-53.0) Mean Corpuscular Volume 92 fL (79-100) Mean Corpuscular Hemoglobin 31 pg (25-35) Mean Corpuscular Hemoglobin Concent 34 g/dL (31-37) Red Cell Distribution Width 13.8 % (11.5-14.5) Platelet Count 189 x10^3/uL (140-400) Assessment and Plan Assessmemt and Plan Problems Medical Problems: (1) Elevated troponin Status: Acute (2) Non-STEMI (non-ST elevated myocardial infarction) Status: Acute (3) Unstable angina Status: Acute Problems: Comment Review of Relevant I have reviewed the following items ami (where applicable) has been applied. Labs Laboratory Tests Test 11/14/16 00:53 11/14/16 02:00 11/14/16 07:15 11/14/16 08:04 White Blood Count 10.2 x10^3/uL (4.0-11.0) Red Blood Count 5.27 x10^6/uL (4.30-5.70) Hemoglobin 16.3 g/dL (13.0-17.5) Hematocrit 49.2 % (39.0-53.0) Mean Corpuscular Volume 93 fL (79-100) Mean Corpuscular Hemoglobin 31 pg (25-35) Mean Corpuscular Hemoglobin Concent 33 g/dL (31-37) Red Cell Distribution Width 14.0 % (11.5-14.5) Platelet Count 253 x10^3/uL (140-400) Neutrophils (%) (Auto) 57 % (31-73) Lymphocytes (%) (Auto) 35 % (24-48) Monocytes (%) (Auto) 7 % (0-9) Eosinophils (%) (Auto) 1 % (0-3) Basophils (%) (Auto) 1 % (0-3) Neutrophils # (Auto) 5.8 x10^3uL (1.8-7.7) Lymphocytes # (Auto) 3.6 x10^3/uL (1.0-4.8) Monocytes # (Auto) 0.7 x10^3/uL (0.0-1.1) Eosinophils # (Auto) 0.1 x10^3/uL (0.0-0.7) Basophils # (Auto) 0.1 x10^3/uL (0.0-0.2) Sodium Level 138 mmol/L (136-145) Potassium Level 4.2 mmol/L (3.5-5.1) Chloride Level 101 mmol/L (98-107) Carbon Dioxide Level 26 mmol/L (21-32) Anion Gap 11 (6-14) Blood Urea Nitrogen 18 mg/dL (8-26) Creatinine 1.3 mg/dL (0.7-1.3) Estimated GFR (Cockcroft-Gault) 56.9 BUN/Creatinine Ratio 14 (6-20) Glucose Level 401 mg/dL (70-99) Calcium Level 8.8 mg/dL (8.5-10.1) Total Bilirubin 0.7 mg/dL (0.2-1.0) Aspartate Amino Transf (AST/SGOT) 44 U/L (15-37) Alanine Aminotransferase (ALT/SGPT) 47 U/L (16-63) Alkaline Phosphatase 78 U/L (46-116) Troponin I Quantitative 1.707 ng/mL (0.000-0.055) 71.849 ng/mL (0.000-0.055) IU-Gqt-B-Type Natriuretic Peptide 2969 pg/mL (0-124) Total Protein 7.3 g/dL (6.4-8.2) Albumin 3.1 g/dL (3.4-5.0) Albumin/Globulin Ratio 0.7 (1.0-1.7) Prothrombin Time 13.3 SEC (11.7-14.0) Prothromb Time International Ratio 1.1 (0.8-1.1) Activated Partial Thromboplast Time 32 SEC (24-38) Magnesium Level 1.6 mg/dL (1.8-2.4) Triglycerides Level 119 mg/dL (0-150) Cholesterol Level 206 mg/dL (0-200) LDL Cholesterol, Calculated 139 mg/dL (0-100) VLDL Cholesterol, Calculated 24 mg/dL (0-40) Non-HDL Cholesterol Calculated 163 mg/dL (0-129) HDL Cholesterol 43 mg/dL (40-60) Cholesterol/HDL Ratio 4.8 Thyroid Stimulating Hormone (TSH) 3.738 uIU/mL (0.358-3.74) Glucose (Fingerstick) 307 mg/dL (70-99) Test 11/14/16 14:40 11/15/16 00:30 11/15/16 08:00 Heparin Anti-Xa Act, Unfractionated 0.36 IU/mL (0.30-0.70) 0.11 IU/mL (0.30-0.70) 0.42 IU/mL (0.30-0.70) Troponin I Quantitative 93.655 ng/mL (0.000-0.055) 31.775 ng/mL (0.000-0.055) White Blood Count 9.0 x10^3/uL (4.0-11.0) Red Blood Count 4.87 x10^6/uL (4.30-5.70) Hemoglobin 15.1 g/dL (13.0-17.5) Hematocrit 45.0 % (39.0-53.0) Mean Corpuscular Volume 92 fL (79-100) Mean Corpuscular Hemoglobin 31 pg (25-35) Mean Corpuscular Hemoglobin Concent 34 g/dL (31-37) Red Cell Distribution Width 13.8 % (11.5-14.5) Platelet Count 189 x10^3/uL (140-400) Laboratory Tests Test 11/14/16 14:40 11/15/16 00:30 11/15/16 08:00 Heparin Anti-Xa Act, Unfractionated 0.36 IU/mL (0.30-0.70) 0.11 IU/mL (0.30-0.70) 0.42 IU/mL (0.30-0.70) Troponin I Quantitative 93.655 ng/mL (0.000-0.055) 31.775 ng/mL (0.000-0.055) White Blood Count 9.0 x10^3/uL (4.0-11.0) Red Blood Count 4.87 x10^6/uL (4.30-5.70) Hemoglobin 15.1 g/dL (13.0-17.5) Hematocrit 45.0 % (39.0-53.0) Mean Corpuscular Volume 92 fL (79-100) Mean Corpuscular Hemoglobin 31 pg (25-35) Mean Corpuscular Hemoglobin Concent 34 g/dL (31-37) Red Cell Distribution Width 13.8 % (11.5-14.5) Platelet Count 189 x10^3/uL (140-400) Medications Current Medications Ondansetron HCl (Zofran) 4 mg PRN Q8HRS PRN IV NAUSEA/VOMITING; Start 11/14/16 at 02:45; Stop 11/15/16 at 02:44; Status DC Morphine Sulfate 2 mg PRN Q2HR PRN IV SEVERE PAIN; Start 11/14/16 at 02:45; Stop 11/15/16 at 02:44; Status DC Acetaminophen (Tylenol) 650 mg PRN Q4HRS PRN PO FEVER; Start 11/14/16 at 02:45 ; Stop 11/15/16 at 02:44; Status DC Nitroglycerin (Nitrostat) 0.4 mg PRN Q5MIN PRN SL CHEST PAIN; Start 11/14/16 at 02:45; Stop 11/15/16 at 02:44; Status DC Aspirin (Children'S Aspirin) 324 mg 1X ONCE PO Last administered on 11/14/16 02:46; Start 11/14/16 at 03:00; Stop 11/14/16 at 03:01; Status DC Nitroglycerin (Nitro-Bid Oint) 1 inch 1X ONCE TP Last administered on 02:49; Start 11/14/16 at 03:00; Stop 11/14/16 at 03:01; Status DC Heparin Sodium/ Dextrose 500 ml @ 0 mls/hr CONT PRN IV SEE I/O RECORD Last administered on 11/15/16 06:01; Start 11/14/16 at 03:15 Heparin Sodium (Porcine) (Heparin Sodium) 2,600 unit PRN Q6HRS PRN IV FOR UFH LEVEL LESS THAN 0.2 Last administered on 11/15/16 02:23; Start 11/14/16 at 03: 15 Info (Anti-Coagulation Monitoring By Pharmacy) 1 each PRN DAILY PRN MC SEE COMMENTS Last administered on 11/14/16 09:48; Start 11/14/16 at 03:30 Labetalol HCl (Normodyne) 20 mg PRN Q2HR PRN IVP HYPERTENSION, SEE COMMENTS Last administered on 11/14/16 17:03; Start 11/14/16 at 07:30 Aspirin (Ecotrin) 81 mg DAILYWBKFT PO Last administered on 11/15/16 08:38; Start 11/14/16 at 08:00 Furosemide (Lasix) 40 mg 1X ONCE IVP Last administered on 11/14/16 08:04; Start 11/14/16 at 07:45; Stop 11/14/16 at 07:46; Status DC Losartan Potassium (Cozaar) 50 mg DAILY PO Last administered on 11/15/16 08:38 ; Start 11/14/16 at 09:00 Heparin Sodium/ Sodium Chloride 1,000 ml @ As Directed STK-MED ONCE .ROUTE ; Start 11/14/16 at 09:57; Stop 11/14/16 at 09:58; Status DC Lidocaine HCl 20 ml STK-MED ONCE .ROUTE ; Start 11/14/16 at 09:57; Stop at 09:58; Status DC Iodixanol (Visipaque 320) 100 ml STK-MED ONCE .ROUTE ; Start 11/14/16 at 09:58; Stop 11/14/16 at 09:59; Status DC Nitroglycerin (Nitroglycerin) 200 mcg STK-MED ONCE .ROUTE ; Start 11/14/16 at 10 :37; Stop 11/14/16 at 10:38; Status DC Verapamil HCl (Verapamil) 5 mg STK-MED ONCE .ROUTE ; Start 11/14/16 at 10:37; Stop 11/14/16 at 10:38; Status DC Heparin Sodium (Porcine) (Heparin Sodium) 10,000 unit STK-MED ONCE .ROUTE ; Start 11/14/16 at 10:37; Stop 11/14/16 at 10:38; Status DC Fentanyl Citrate (Fentanyl 5ml Vial) 250 mcg STK-MED ONCE .ROUTE ; Start at 10:37; Stop 11/14/16 at 10:38; Status DC Midazolam HCl (Versed) 5 mg STK-MED ONCE .ROUTE ; Start 11/14/16 at 10:38; Stop 11/14/16 at 10:39; Status DC Nitroglycerin (Nitroglycerin) 200 mcg 1X ONCE IART Last administered on 12:22; Start 11/14/16 at 11:00; Stop 11/14/16 at 11:01; Status DC Verapamil HCl (Verapamil) 2.5 mg 1X ONCE IART Last administered on 11/14/16 12:21; Start 11/14/16 at 11:00; Stop 11/14/16 at 11:01; Status DC Heparin Sodium (Porcine) (Heparin Sodium) 2,500 unit 1X ONCE IART Last administered on 11/14/16 12:20; Start 11/14/16 at 11:00; Stop 11/14/16 at 11:01 ; Status DC Heparin Sodium/ Sodium Chloride 1,000 unit 1X ONCE IART Last administered on 12:24; Start 11/14/16 at 11:00; Stop 11/14/16 at 11:01; Status DC Midazolam HCl (Versed) 5 mg 1X ONCE IV Last administered on 11/14/16 12:22; Start 11/14/16 at 11:00; Stop 11/14/16 at 11:01; Status DC Fentanyl Citrate (Fentanyl 5ml Vial) 250 mcg 1X ONCE IV Last administered on 12:22; Start 11/14/16 at 11:00; Stop 11/14/16 at 11:01; Status DC Iodixanol (Visipaque 320) 100 ml 1X ONCE IART Last administered on 11/14/16 12:21; Start 11/14/16 at 11:00; Stop 11/14/16 at 11:01; Status DC Lidocaine HCl 20 ml 1X ONCE IJ Last administered on 11/14/16 12:23; Start at 11:00; Stop 11/14/16 at 11:01; Status DC Info (Do NOT chart on this entry -- for MONITORING) 1 each PRN DAILY PRN MC SEE COMMENTS; Start 11/14/16 at 11:00; Stop 11/16/16 at 10:59 Tirofiban/Sodium Chloride 250 ml @ As Directed STK-MED ONCE IV ; Start at 11:14; Stop 11/14/16 at 11:15; Status DC Sodium Chloride 1,000 ml @ 50 mls/hr Q20H IV Last administered on 11/14/16 11 :26; Start 11/14/16 at 11:45 Tirofiban/Sodium Chloride 250 ml @ 0 mls/hr CONT PRN IV PER PROTOCOL Last administered on 11/14/16 11:22; Start 11/14/16 at 12:00; Stop 11/15/16 at 05:59 ; Status DC Clopidogrel Bisulfate (Plavix) 600 mg 1X ONCE PO Last administered on 12:24; Start 11/14/16 at 12:15; Stop 11/14/16 at 12:17; Status DC Clopidogrel Bisulfate (Plavix) 75 mg STK-MED ONCE .ROUTE ; Start 11/14/16 at 12: 17; Stop 11/14/16 at 12:18; Status DC Clopidogrel Bisulfate (Plavix) 75 mg DAILYWBKFT PO Last administered on 08:38; Start 11/15/16 at 08:00 Vitals/I & O Vital Sign - Last 24 Hours 11/14/16 11/14/16 11/14/16 11/14/16 12:45 13:00 13:15 13:30 Pulse 90 87 84 89 B/P (MAP) 146/93 (110) 134/88 (103) 133/92 (106) 126/95 (105) 11/14/16 11/14/16 11/14/16 11/14/16 14:00 14:30 15:30 16:30 Pulse 90 88 88 102 B/P (MAP) 139/99 (112) 120/93 (102) 138/106 (117) 153/107 (122) 11/14/16 11/14/16 11/14/16 11/14/16 17:03 17:43 19:15 19:30 Temp 97.4 97.4 Pulse 109 94 84 Resp 32 B/P (MAP) 162/110 137/109 (118) 119/85 (96) Pulse Ox 95 O2 Delivery Nasal Cannula Room Air O2 Flow Rate 2.0 11/14/16 11/15/16 11/15/16 11/15/16 23:16 03:50 07:40 08:00 Temp 98.0 98.0 98.0 98.0 Pulse 72 81 80 Resp 24 26 24 B/P (MAP) 109/75 (86) 111/78 (89) 116/85 (95) Pulse Ox 95 98 98 O2 Delivery Nasal Cannula Room Air Room Air Room Air O2 Flow Rate 2.0 2.0 11/15/16 11/15/16 08:38 11:00 Temp 97.9 97.9 Pulse 80 74 Resp 24 B/P (MAP) 116/85 125/89 (101) Pulse Ox 100 O2 Delivery Room Air Intake and Output 11/14/16 11/14/16 11/15/16 15:00 23:00 07:00 Intake Total 440 ml 815 ml Output Total 1600 ml 600 ml Balance -1160 ml 215 ml RAMONA ANTUNEZ MD Nov 15, 2016 12:47
[2016-11-15] MEDS: ANTI-COAG MONITOR BY PHARMACY. MC PRN (13:58)
[2016-11-15 15:30] VITALS: BP 114/78
[2016-11-15 18:36] VITALS: BP 125/90
[2016-11-15 22:55] VITALS: BP 111/77
[2016-11-16] MEDS: IV 1/2 NORMAL SALINE 1,000 ML IV SCH (03:45)
[2016-11-16 03:48] VITALS: BP 116/79
[2016-11-16 07:00] VITALS: BP 104/76
[2016-11-16] MEDS: LOSARTAN POTASSIUM 50 MG TABLET. PO SCH (09:00)
[2016-11-16] MEDS: ASPIRIN ENTERIC COATED 81 MG TABLET.DR. PO SCH (09:40)
[2016-11-16] MEDS: CLOPIDOGREL BISULFATE 75 MG TABLET PO SCH (09:44)
[2016-11-16 11:00] VITALS: BP 102/74
--- NOTE | 2016-11-16 12:03 | PDOC ---
ABEL RIDLEY TELEGRAPH PRINTER MECHANIC 11/16/16 1203: CARDIO Progress Notes Date and Time Date of Service 11/16/2016 Time of Evaluation 1130 Subjective Subjective: No Chest Pain, No shortness of breath, No Palpitations, No Dizziness Vitals Vitals Vital Signs Date Time Temp Pulse Resp B/P (MAP) Pulse Ox O2 Delivery O2 Flow Rate FiO2 11/16/16 11:00 97.4 88 18 102/74 (83) 97 Room Air 97.4 11/15/16 08:00 2.0 Weight Weight [ ] Input and Output Intake and Output Intake and Output 11/16/16 07:00 Intake Total 1030 ml Output Total 500 ml Balance 530 ml Intake Oral 600 ml IV Total 230 ml Other 200 ml Output Urine Total 500 ml Laboratory Labs Laboratory Tests Test 11/15/16 16:12 11/15/16 23:35 Heparin Anti-Xa Act, Unfractionated < 0.10 IU/mL (0.30-0.70) 0.52 IU/mL (0.30-0.70) Physical Exam HEENT: Neck Supple W Full Motion Chest: Symmetric LUNGS: Other (fa8int basilar crackles) Heart: S1S2, RRR (SR), murmurs (3/6 systolic murmur to TYRONE border) Abdomen: Soft N/T Extremities: No Calf Tenderness, Other (1+ bilateral LE pitting edema) Neurology: alert, oriented, follow commands Other Exams right groin arteriotomy site intact with mild bruising no swelling, no erythema. Neurovascular status to bilateral LE intact Assessment Assessment 1. NSTEMI: S/P Successful recanalization of the RPL. Unsuccessful recanalization of the RPDA 2. CAD: per [facility] as above with previous LAD stents occluded with notable apical collateralization 3. Cardiomyopathy/: compensated 4. HLP 5. DM2: uncontrolled 6. Noncompliance. 7. Cognitive impairment? Poor understanding of CV education Recommendations 1. TTE pending for today. No health insurance will not be able to afford life vest if EF is significantly low. 2. BP low end. DC losartan and place on metoprolol if BP tolerance. 3. ECASA 81 mg and 75 mg plavix. Good Rx card given 4. Tailor made Rx with [facility] 4$ prescription. Lovastatin 5. Unable to afford cardiac rehab 6. Significant discussion with treatment compliance and morbidity/mortality for noncompliance 8. Encourage to f/u in office in 4 weeks 9. Daily weight daily BP monitoring and FR. 10. A1C 12.2 BG optimization per PCP RADHA MAYFIELD MD 11/16/16 1400: CARDIO Progress Notes Plan Plan Pt. seen but not examined. 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 We have repeatedly try to educate this patient and he is adamant about not taking certain pills (marleni-inh) etc which would be important for his terminal carman health. He does not understand the gravity of his medical problems but will respect patient wishes and refrain from further visits. As noted above, tailored minimal medical therapy that patient is willing to take to the $4 list. He will follow up with [facility], the site of his previous PCI for the LAD. Echo today reveals severe ischemic CMP, EF 25%, Moderate to severe , Moderate to severe MR. Needs terminal carman support and care, I encouraged him to seek medical insurance. Thanks. ABEL RIDLEY APRN Nov 16, 2016 12:03 RADHA MAYFIELD MD Nov 16, 2016 14:00
--- NOTE | 2016-11-16 12:57 | CARD ---
APPROVED REPORT EXAM: Two-dimensional and M-mode echocardiogram with Doppler and color Doppler. Other Information Quality : Good INDICATION Non STEMI 2D DIMENSIONS RVDd3.4 (2.9-3.5cm)Left Atrium(2D)5.1 (1.6-4.0cm) IVSd1.1 (0.7-1.1cm)Aortic Root(2D)2.6 (2.0-3.7cm) LVDd6.7 (3.9-5.9cm)LVOT Diameter1.8 (1.8-2.4cm) PWd1.0 (0.7-1.1cm)LVDs5.5 (2.5-4.0cm) FS (%) 8.0 %SV30.8 ml LVEF(%)30.0 (>50%) Aortic Valve AoV Peak Osei.273.0cm/sAoV VTI41.4cm AO Peak GR.29.8mmHgLVOT Peak Osei.111.5cm/s LVOT VTI 19.16cmAO Mean GR.17mmHg ABRIL (VMAX)0.41fk0PCT (VTI)1.12cm2 Mitral Valve MV E Zmgjkqhz356.8cm/sMV DECEL CONN875il MV A Txcuszmj58.3cm/sMV E Mean Gr.4mmHg MV [id number]/A Ratio2.4 MV A [id number] (PHT)5.91cm2 TDI E/Lateral E'24.0E/Medial E'17.9 Pulmonary Valve RVOT VTI8.2cm Tricuspid Valve TR P. Rptzbkqa141ok/sTR Peak Gr.66mmHg Pulmonary Vein S1 Otnkjibk37.7cm/sD2 Ajskzyyx41.2cm/s LEFT VENTRICLE The Left Ventricle is mildly dilated. There is normal left ventricular wall thickness. The left ventr icular systolic function is severely decreased. EF 25%. The mid to distal LV is severely hypokinetic. Tissue Doppler imaging reveals severe left ventricular diastolic dysfunction. RIGHT VENTRICLE The right ventricle is normal size. There is normal right ventricular wall thickness. The right ventr icular systolic function is normal. ATRIA The left atrium is mildly dilated. The right atrium size is normal. The interatrial septum is intact with no evidence for an atrial septal defect or patent foramen ovale as noted on 2-D or Doppler imagi ng. AORTIC VALVE The aortic valve is mildly to moderately thickened. Doppler and Color Flow revealed mild aortic regur gitation. Calculated aortic valve area is 1.0 cm2 with maximum pressure gradient of 29 mmHg and mean pressure gradient of 17 mmHg. Suspect that the aortic stenosis is underestimated due to severe LV dys function. Probable moderate to severe aortic stenosis. MITRAL VALVE The mitral valve is grossly normal. Doppler and Color Flow revealed moderate to severe mitral regurgi tation. TRICUSPID VALVE The tricuspid valve is normal in structure and function. Doppler and Color Flow revealed moderate tri cuspid regurgitation. The PA pressure was estimated at 68 mmHg. PULMONIC VALVE Doppler and Color Flow revealed trace pulmonic valvular regurgitation. GREAT VESSELS The aortic root is normal in size. The IVC is normal in size and collapses >50% with inspiration. PERICARDIAL EFFUSION There is no pleural effusion. There is no evidence of significant pericardial effusion. Critical Notification Critical Value: No <Conclusion> Calculated aortic valve area is 1.0 cm2 with maximum pressure gradient of 29 mmHg and mean pressure gradient of 17 mmHg. Suspect that the aortic stenosis is underestimated due to severe LV dysfunction. Probable moderate to severe aortic stenosis. Doppler and Color Flow revealed moderate to severe mitral regurgitation. Doppler and Color Flow revealed moderate tricuspid regurgitation. The PA pressure was estimated at 68 mmHg. The left ventricular systolic function is severely decreased. EF 25%.
--- NOTE | 2016-11-16 13:46 | PDOC ---
PROGRESS NOTES Chief Complaint Chief Complaint Chief complaint chest pain Assessment and plan 1. Severe LV dysfunction with suspicion for moderate . 2. Two vessel CAD. 3. Unsuccessful recanalization of the RPDA 4. Successful recanalization of the RPL. 5. Diabetes mellitus uncontrolled Plan Case discussed with cardiology, patient prognosis is guarded. 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 Continue aspirin, losartan, Plavix at this time. Patient would like to have a $4 list medications at the time of discharge. i talked to pt for 10min, he likely has limited understand to his situation, and unfortunately , no insurance to follow any docs. i talked to nurse, will try to get pharm to talk to him about dm meds, but likely pt will cont refuse echo and MPI as per card today dc tmr History of Present Illness History of Present Illness Sitting in chair, no fever no chills no chest pains HYPERGLYcemia, but refuse DM2 meds Vitals Vitals Vital Signs Date Time Temp Pulse Resp B/P (MAP) Pulse Ox O2 Delivery O2 Flow Rate FiO2 11/16/16 11:00 97.4 88 18 102/74 (83) 97 Room Air 97.4 11/15/16 08:00 2.0 Physical Exam General: Alert, Oriented X3, Cooperative, No acute distress Heart: Regular rate (SR), Normal S1, Normal S2, Other (S4; 3/6 systolic murmur to LLS border) Lungs: Clear Abdomen: Soft, No tenderness Extremities: No cyanosis, Other (2+ bilateral LE pitting edema) Skin: No breakdown, No significant lesion Labs LABS Laboratory Tests Test 11/15/16 16:12 11/15/16 23:35 Heparin Anti-Xa Act, Unfractionated < 0.10 IU/mL (0.30-0.70) 0.52 IU/mL (0.30-0.70) Review of Systems Review of Systems no fever, chills, sob or chest pain Assessment and Plan Assessmemt and Plan Problems Medical Problems: (1) Elevated troponin Status: Acute (2) Non-STEMI (non-ST elevated myocardial infarction) Status: Acute (3) Unstable angina Status: Acute Problems: Comment Review of Relevant I have reviewed the following items ami (where applicable) has been applied. Labs Laboratory Tests Test 11/14/16 14:40 11/15/16 00:30 11/15/16 08:00 11/15/16 16:12 Heparin Anti-Xa Act, Unfractionated 0.36 IU/mL (0.30-0.70) 0.11 IU/mL (0.30-0.70) 0.42 IU/mL (0.30-0.70) < 0.10 IU/mL (0.30-0.70) Troponin I Quantitative 93.655 ng/mL (0.000-0.055) 31.775 ng/mL (0.000-0.055) White Blood Count 9.0 x10^3/uL (4.0-11.0) Red Blood Count 4.87 x10^6/uL (4.30-5.70) Hemoglobin 15.1 g/dL (13.0-17.5) Hematocrit 45.0 % (39.0-53.0) Mean Corpuscular Volume 92 fL (79-100) Mean Corpuscular Hemoglobin 31 pg (25-35) Mean Corpuscular Hemoglobin Concent 34 g/dL (31-37) Red Cell Distribution Width 13.8 % (11.5-14.5) Platelet Count 189 x10^3/uL (140-400) Test 11/15/16 23:35 Heparin Anti-Xa Act, Unfractionated 0.52 IU/mL (0.30-0.70) Laboratory Tests Test 11/15/16 16:12 11/15/16 23:35 Heparin Anti-Xa Act, Unfractionated < 0.10 IU/mL (0.30-0.70) 0.52 IU/mL (0.30-0.70) Medications Current Medications Ondansetron HCl (Zofran) 4 mg PRN Q8HRS PRN IV NAUSEA/VOMITING; Start 11/14/16 at 02:45; Stop 11/15/16 at 02:44; Status DC Morphine Sulfate 2 mg PRN Q2HR PRN IV SEVERE PAIN; Start 11/14/16 at 02:45; Stop 11/15/16 at 02:44; Status DC Acetaminophen (Tylenol) 650 mg PRN Q4HRS PRN PO FEVER; Start 11/14/16 at 02:45 ; Stop 11/15/16 at 02:44; Status DC Nitroglycerin (Nitrostat) 0.4 mg PRN Q5MIN PRN SL CHEST PAIN; Start 11/14/16 at 02:45; Stop 11/15/16 at 02:44; Status DC Aspirin (Children'S Aspirin) 324 mg 1X ONCE PO Last administered on 11/14/16 02:46; Start 11/14/16 at 03:00; Stop 11/14/16 at 03:01; Status DC Nitroglycerin (Nitro-Bid Oint) 1 inch 1X ONCE TP Last administered on 02:49; Start 11/14/16 at 03:00; Stop 11/14/16 at 03:01; Status DC Heparin Sodium/ Dextrose 500 ml @ 0 mls/hr CONT PRN IV SEE I/O RECORD Last administered on 11/15/16 20:57; Start 11/14/16 at 03:15 Heparin Sodium (Porcine) (Heparin Sodium) 2,600 unit PRN Q6HRS PRN IV FOR UFH LEVEL LESS THAN 0.2 Last administered on 11/15/16 17:27; Start 11/14/16 at 03: 15 Info (Anti-Coagulation Monitoring By Pharmacy) 1 each PRN DAILY PRN MC SEE COMMENTS Last administered on 11/15/16 13:58; Start 11/14/16 at 03:30 Labetalol HCl (Normodyne) 20 mg PRN Q2HR PRN IVP HYPERTENSION, SEE COMMENTS Last administered on 11/14/16 17:03; Start 11/14/16 at 07:30 Aspirin (Ecotrin) 81 mg DAILYWBKFT PO Last administered on 11/16/16 09:40; Start 11/14/16 at 08:00 Furosemide (Lasix) 40 mg 1X ONCE IVP Last administered on 11/14/16 08:04; Start 11/14/16 at 07:45; Stop 11/14/16 at 07:46; Status DC Losartan Potassium (Cozaar) 50 mg DAILY PO Last administered on 11/15/16 08:38 ; Start 11/14/16 at 09:00; Stop 11/16/16 at 12:04; Status DC Heparin Sodium/ Sodium Chloride 1,000 ml @ As Directed STK-MED ONCE .ROUTE ; Start 11/14/16 at 09:57; Stop 11/14/16 at 09:58; Status DC Lidocaine HCl 20 ml STK-MED ONCE .ROUTE ; Start 11/14/16 at 09:57; Stop at 09:58; Status DC Iodixanol (Visipaque 320) 100 ml STK-MED ONCE .ROUTE ; Start 11/14/16 at 09:58; Stop 11/14/16 at 09:59; Status DC Nitroglycerin (Nitroglycerin) 200 mcg STK-MED ONCE .ROUTE ; Start 11/14/16 at 10 :37; Stop 11/14/16 at 10:38; Status DC Verapamil HCl (Verapamil) 5 mg STK-MED ONCE .ROUTE ; Start 11/14/16 at 10:37; Stop 11/14/16 at 10:38; Status DC Heparin Sodium (Porcine) (Heparin Sodium) 10,000 unit STK-MED ONCE .ROUTE ; Start 11/14/16 at 10:37; Stop 11/14/16 at 10:38; Status DC Fentanyl Citrate (Fentanyl 5ml Vial) 250 mcg STK-MED ONCE .ROUTE ; Start at 10:37; Stop 11/14/16 at 10:38; Status DC Midazolam HCl (Versed) 5 mg STK-MED ONCE .ROUTE ; Start 11/14/16 at 10:38; Stop 11/14/16 at 10:39; Status DC Nitroglycerin (Nitroglycerin) 200 mcg 1X ONCE IART Last administered on 12:22; Start 11/14/16 at 11:00; Stop 11/14/16 at 11:01; Status DC Verapamil HCl (Verapamil) 2.5 mg 1X ONCE IART Last administered on 11/14/16 12:21; Start 11/14/16 at 11:00; Stop 11/14/16 at 11:01; Status DC Heparin Sodium (Porcine) (Heparin Sodium) 2,500 unit 1X ONCE IART Last administered on 11/14/16 12:20; Start 11/14/16 at 11:00; Stop 11/14/16 at 11:01 ; Status DC Heparin Sodium/ Sodium Chloride 1,000 unit 1X ONCE IART Last administered on 12:24; Start 11/14/16 at 11:00; Stop 11/14/16 at 11:01; Status DC Midazolam HCl (Versed) 5 mg 1X ONCE IV Last administered on 11/14/16 12:22; Start 11/14/16 at 11:00; Stop 11/14/16 at 11:01; Status DC Fentanyl Citrate (Fentanyl 5ml Vial) 250 mcg 1X ONCE IV Last administered on 12:22; Start 11/14/16 at 11:00; Stop 11/14/16 at 11:01; Status DC Iodixanol (Visipaque 320) 100 ml 1X ONCE IART Last administered on 11/14/16 12:21; Start 11/14/16 at 11:00; Stop 11/14/16 at 11:01; Status DC Lidocaine HCl 20 ml 1X ONCE IJ Last administered on 11/14/16 12:23; Start at 11:00; Stop 11/14/16 at 11:01; Status DC Info (Do NOT chart on this entry -- for MONITORING) 1 each PRN DAILY PRN MC SEE COMMENTS; Start 11/14/16 at 11:00; Stop 11/16/16 at 10:59; Status DC Tirofiban/Sodium Chloride 250 ml @ As Directed STK-MED ONCE IV ; Start at 11:14; Stop 11/14/16 at 11:15; Status DC Sodium Chloride 1,000 ml @ 50 mls/hr Q20H IV Last administered on 11/14/16 11 :26; Start 11/14/16 at 11:45 Tirofiban/Sodium Chloride 250 ml @ 0 mls/hr CONT PRN IV PER PROTOCOL Last administered on 11/14/16 11:22; Start 11/14/16 at 12:00; Stop 11/15/16 at 05:59 ; Status DC Clopidogrel Bisulfate (Plavix) 600 mg 1X ONCE PO Last administered on 12:24; Start 11/14/16 at 12:15; Stop 11/14/16 at 12:17; Status DC Clopidogrel Bisulfate (Plavix) 75 mg STK-MED ONCE .ROUTE ; Start 11/14/16 at 12: 17; Stop 11/14/16 at 12:18; Status DC Clopidogrel Bisulfate (Plavix) 75 mg DAILYWBKFT PO Last administered on t 09:44; Start 11/15/16 at 08:00 Metoprolol Tartrate (Lopressor) 12.5 mg BID PO ; Start 11/16/16 at 21:00 Vitals/I & O Vital Sign - Last 24 Hours 11/15/16 11/15/16 11/15/16 11/15/16 15:30 18:36 19:40 22:55 Temp 98.0 97.8 97.8 98.0 97.8 97.8 Pulse 88 89 89 Resp 22 22 20 B/P (MAP) 114/78 (90) 125/90 (102) 111/77 (88) Pulse Ox 96 97 95 O2 Delivery Room Air Room Air Room Air Room Air 11/16/16 11/16/16 11/16/16 11/16/16 03:48 07:00 08:00 09:00 Temp 97.9 98.2 97.9 98.2 Pulse 91 86 88 Resp 20 18 B/P (MAP) 116/79 (91) 104/76 (85) 102/74 Pulse Ox 97 96 O2 Delivery Room Air Room Air Room Air 11/16/16 11:00 Temp 97.4 97.4 Pulse 88 Resp 18 B/P (MAP) 102/74 (83) Pulse Ox 97 O2 Delivery Room Air Intake and Output 11/15/16 11/15/16 11/16/16 15:00 23:00 07:00 Intake Total 800 ml 230 ml Output Total 300 ml 200 ml Balance 500 ml 30 ml PRETTY WALLER MD Nov 16, 2016 13:46
[2016-11-16] MEDS ORDERED: PHARMACY TO REVIEW MEDS MC ONE (14:00)
[2016-11-16 15:00] VITALS: BP 106/62
--- NOTE | 2016-11-16 16:32 | PDOC3 ---
Discharge Summary [facility] Date of Admission: Nov 14, 2016 Discharge Date: Nov 16, 2016 Admitting Diagnosis 1. Severe LV dysfunction with suspicion for moderate . 2. Two vessel CAD. 3. Unsuccessful recanalization of the RPDA 4. Successful recanalization of the RPL. 5. Diabetes mellitus uncontrolled moderate to severe , MR, TR COMPensated systolic CHF with EF 25% PHTN Problems: Final Diagnosis CONSULTS card Procedures PCI Brief Hospital Course Mr. Hemphill is a 56 old M, no pcp nor insurance, refused to take any meds for DM2 , including metformin and glipizide and insulin, saying those meds can cause him either temporaly blind or sob, (which is likely not ture) and refuse to take any meds for dm in hosp, came for chest pain. Cath done, did recanalization of RPDA, no stents. asked pharmacy to explain the importance of taking meds. will prescribe some meds to go home, see MARDS, but not sure pt will take it or not given no insurance and non compliance. dc time 35min Problems: Disposition home CONDITION AT DISCHARGE: Improved Diet ada, cardiac Follow Up pcp PRETTY Smith MD Nov 16, 2016 16:32
[2016-11-16] MEDS ORDERED: CLOP75TA PO ×2 (16:33→16:43)
[2016-11-16] MEDS ORDERED: METO25TA4 PO ×2 (16:33→16:42)
[2016-11-16] MEDS ORDERED: METF1000 PO (16:33)
[2016-11-16] MEDS ORDERED: ASPI-612 PO (16:33)
[2016-11-16] MEDS ORDERED: ASPI-630 PO (16:43)
[2016-11-16] MEDS ORDERED: LOVA20TA2 PO (16:43)
[2016-11-16] MEDS ORDERED: METF-620 PO (16:44)
[2016-11-16] MEDS ORDERED: METOPROLOL TART IMMED RELEASE 25 MG TABLET. PO SCH (21:00)
== END 2016-11-16 17:15 | disposition home or self-care (01) | DRG 250 ==
LOC: ER 00:40 → 2 NORTH 02:32
PROVIDERS: ADMIT Internal Medicine Hematology & Oncology; ATTEND Internal Medicine Hematology & Oncology
PROC: 02713ZZ Dilation of Coronary Artery, Two Arteries, Percutaneous Approach (ICD-10-PCS; principal; 2016-11-14)
PROC: 4A023N7 Measurement of Cardiac Sampling and Pressure, Left Heart, Percutaneous Approach (ICD-10-PCS; 2016-11-14)
PROC: B2111ZZ Fluoroscopy of Multiple Coronary Arteries using Low Osmolar Contrast (ICD-10-PCS; 2016-11-14)
DX: I21.4 Non-ST elevation (NSTEMI) myocardial infarction (principal); I50.23 Acute on chronic systolic (congestive) heart failure; I42.9 Cardiomyopathy, unspecified; E78.5 Hyperlipidemia, unspecified; I25.110 Atherosclerotic heart disease of native coronary artery with unstable angina pectoris; I08.3 Combined rheumatic disorders of mitral, aortic and tricuspid valves; K30 Functional dyspepsia; I11.0 Hypertensive heart disease with heart failure; E11.65 Type 2 diabetes mellitus with hyperglycemia; Z79.899 Other long term (current) drug therapy; Z79.82 Long term (current) use of aspirin; Z82.49 Family history of ischemic heart disease and other diseases of the circulatory system; Z91.19 Patient's noncompliance with other medical treatment and regimen; Z91.14 Patient's other noncompliance with medication regimen; Z95.5 Presence of coronary angioplasty implant and graft; Z79.1 Long term (current) use of non-steroidal anti-inflammatories (NSAID); Z79.2 Long term (current) use of antibiotics; Z88.8 Allergy status to other drugs, medicaments and biological substances; Z95.818 Presence of other cardiac implants and grafts; Z87.891 Personal history of nicotine dependence
CPT/HCPCS: 36415; 71010; 80053; 80061; 82962; 83036; 83735; 83880; 84443; 84484; 85027; 85347; 85520; 85610; 85730; 92920; 93005; 93306; 93458; 99152; 99153; C1725; C1769; C1771; C1887; C1892; G0269; J1644; J1940; J2001; J2250; J3010; J3490; 99285-25; J3246